=== PATIENT | female | born 1980 | race Caucasian/White ===

== ENCOUNTER 2025-06-18 13:48 | Emergency (ER) | payer MEDICARE, OTHER ==
[~2025-06-18] VITALS: Ht 154.9 cm; Wt 98.0 kg
[2025-06-18 14:18] LABS: BASOPHILS 0.6 % (0.1-1.2); EOSINOPHILS 0 % (0.7-5.8); LYMPHOCYTES 10.4 % (19.3-51.7); MCH 28.7 PG (25.6-32.2); MCHC 33.7 g/dL (32.2-35.5); MCV 85.0 fL (79.4-94.8); MONOCYTES 1.9 % (4.7-12.5); NEUTROPHILS 82.4 % (34.0-71.1); RBC 3.87 M/uL (3.93-5.22)
[2025-06-18 14:34] LABS: ALT (SGPT) 29.0 U/L (14-59); AST (SGOT) 26.0 U/L (15-37); GLOMERULAR FILTRATION RATE,EST 76.0 mL/min (>60); PROTEIN, TOTAL 6.6 g/dL (6.4-8.2); UREA NITROGEN 23.0 mg/dL (7-18)
[2025-06-18] MEDS ORDERED: ABILIFY5 MG PO (15:36)
[2025-06-18] MEDS ORDERED: TYLENOL325 MG (15:36)
[2025-06-18] MEDS ORDERED: DRIZALMA SPRINK60 MG PO (15:37)
[2025-06-18] MEDS ORDERED: HUMALOG100 UNITS/ (15:37)
[2025-06-18] MEDS ORDERED: CHOLECALCIFEROL1 GM (15:37)
[2025-06-18] MEDS ORDERED: HYDROCODON-ACE1 EA10 (15:38)
[2025-06-18] MEDS ORDERED: HYDROXYZINE PAM50 MG (15:38)
[2025-06-18] MEDS ORDERED: LAMICTAL200 MG PO (15:39)
[2025-06-18] MEDS ORDERED: CHILDREN'S1 MG/1 M8 (15:39)
[2025-06-18] MEDS ORDERED: LANTUS SOL100 UNIT/1 (15:39)
[2025-06-18] MEDS ORDERED: ONDANSETRON ODT8 MG (15:40)
--- OUTSIDE RECORDS SUMMARY | 2025-06-18 15:40 | XMS ---
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 Ruth. VISIT COUNT (12 MO.) 10 Daniel Kaur ([facility]) 1 [facility] TOTAL 12 NOTE: Visits indicate total known visits. ED/UCC VISIT TRACKING (12 MO.) 06/18/2025 13:49 [facility] [place] TYPE: Emergency COMPLAINT: - WEAKNESS 06/07/2025 05:01 Daniel [facility] ([facility]) TYPE: Emergency DIAGNOSES: - Adult failure to thrive - Candidiasis, unspecified - Hyperglycemia, unspecified - Chest Pain 05/25/2025 21:06 aDniel [facility] ([facility]) TYPE: Emergency DIAGNOSES: - Acute kidney failure, unspecified - Elevated white blood cell count, unspecified - Hypermagnesemia - Type 2 diabetes mellitus with hyperglycemia - Nausea - weakness 11/11/2024 12:34 Daniel Chase ReplySendArmando [facility] ([facility] TYPE: Emergency DIAGNOSES: - Candidal stomatitis - Cystitis, unspecified without hematuria - Sepsis, unspecified organism - Altered Mental Status - Dehydration 11/05/2024 17:27 Daniel Garciahaven KyraArmando [facility] ([facility] TYPE: Emergency DIAGNOSES: - Person with feared health complaint in whom no diagnosis is made - abdominal pain 11/03/2024 17:12 Daniel Chase KyraArmando [facility] ([facility] TYPE: Emergency DIAGNOSES: - Nausea - Altered Mental Status - Confusion; Medical Followup Problem 11/02/2024 12:28 Daniel [facility] ([facility] TYPE: Emergency DIAGNOSES: - Dehydration - Pain in right ankle and joints of right foot - Pain in right knee - Altered Mental Status - confusion - confustion 10/19/2024 19:50 Daniel [facility] ([facility] TYPE: Emergency DIAGNOSES: - Acute kidney failure, unspecified - Alkalosis - Dehydration - Diarrhea, unspecified - Hypokalemia - Vomiting, unspecified - Diarrhea (Adult) - Weakness 09/22/2024 15:46 [facility] TYPE: Emergency COMPLAINT: - Vomiting DIAGNOSES: - Hypokalemia - Nausea with vomiting, unspecified - Nasuea - Vomiting 09/22/2024 09:10 Daniel [facility] ([facility] TYPE: Emergency DIAGNOSES: - Hypokalemia - Nausea - Nausea - Nausea - Vomiting 09/16/2024 11:51 Daniel [facility] ([facility] TYPE: Emergency DIAGNOSES: - Nausea with vomiting, unspecified - Emesis - nausea 07/16/2024 17:35 Daniel [facility] ([facility] TYPE: Emergency DIAGNOSES: - Nausea with vomiting, unspecified - Opioid use, unspecified with withdrawal - Emesis INPATIENT VISIT TRACKING (12 MO.) 06/07/2025 05:01 Daniel [facility] ([facility] TYPE: Internal Medicine DIAGNOSES: - Adult failure to thrive - Candidiasis, unspecified - Chronic pain syndrome - Hyperglycemia, unspecified - Neuralgia and neuritis, unspecified - Other disturbances of skin sensation - Paralytic syndrome, unspecified - Postlaminectomy syndrome, not elsewhere classified - Type 2 diabetes mellitus with hyperglycemia 05/25/2025 21:06 Daniel [facility] ([facility] TYPE: Internal Medicine DIAGNOSES: - Acute kidney failure, unspecified - Elevated white blood cell count, unspecified - Hypermagnesemia - Type 2 diabetes mellitus with hyperglycemia 12/30/2024 16:03 [facility]erv[facility]rand[facility] TYPE: Inpatient Rehab DIAGNOSES: - Acute systolic (congestive) heart failure - Alcohol abuse, uncomplicated - Brief psychotic disorder - Depression, unspecified - Encephalitis and encephalomyelitis, unspecified - Full incontinence of feces - Guillain-Clifford syndrome - Guillain-Clifford syndrome - Morbid (severe) obesity due to excess calories - Neuralgia and neuritis, unspecified - Other disturbances of skin sensation - Other reduced mobility - Other specified abnormal findings of blood chemistry - Other specified health status - Other symptoms and signs involving cognitive functions and awareness - Postlaminectomy syndrome, not elsewhere classified - Quadriplegia, unspecified - Unspecified severe protein-calorie malnutrition - Unspecified urinary incontinence - Weakness 11/11/2024 12:34 Daniel [facility] ([facility]) TYPE: Internal Medicine DIAGNOSES: - Altered mental status, unspecified - Candidal stomatitis - Critical illness polyneuropathy - Cystitis, unspecified without hematuria - Encephalitis and encephalomyelitis, unspecified - Guillain-Clifford syndrome - Sepsis, unspecified organism 10/19/2024 19:50 Daniel [facility] [place] ([facility]) TYPE: Critical Care DIAGNOSES: - Acute kidney failure, unspecified - Acute kidney failure, unspecified - Alkalosis - Dehydration - Diarrhea, unspecified - Hypokalemia - Muscle wasting and atrophy, not elsewhere classified, unspecified site - Nausea with vomiting, unspecified - Other diseases of stomach and duodenum - Other specified postprocedural states - Other symptoms and signs involving the nervous system - Postlaminectomy syndrome, not elsewhere classified - Radiculopathy, lumbar region - Retention of urine, unspecified - Syringomyelia and syringobulbia - Urinary tract infection, site not specified - Vascular complications following infusion, transfusion and therapeutic injection, initial encounter - Vomiting, unspecified - Weakness [email or web address]
[2025-06-18] MEDS ORDERED: PREGABALIN225 MG (15:41)
[2025-06-18] MEDS ORDERED: PREDNISONE20 MG (15:41)
[2025-06-18 15:45] LABS: BLOOD/HGB, URINE MODERATE (Negative); KETONE, URINE TRACE (Negative); LEUK ESTERASE, URINE NEGATIVE (negative); NITRITE, URINE NEGATIVE (negative)
[2025-06-18 15:52] LABS: EPITHELIAL CELLS, URINE SQUAMOUS 1+ /lpf (0-1+)
[2025-06-18 15:55] LABS: BACTERIA, URINE 1+ /hpf (negative); CASTS, URINE NONE SEEN \\lpf; CRYSTALS, URINE NONE SEEN (0-1+); REFLEX CULTURE, URINE No (No)
[2025-06-18 18:02] VITALS: BP 120/85
== END 2025-06-18 19:28 | disposition home or self-care (01) ==
LOC: ED 13:48
PROVIDERS: Emergency Medicine
DX: R51.9 Headache, unspecified (principal); E11.9 Type 2 diabetes mellitus without complications; I50.9 Heart failure, unspecified; K21.9 Gastro-esophageal reflux disease without esophagitis; Z79.4 Long term (current) use of insulin; Z79.899 Other long term (current) drug therapy
CPT/HCPCS: 36415; 51702; 70450; 80053; 81001; 83735; 84484; 85025; 99285-25; A4311